=== PATIENT | male | born 1985 | race Two or more races ===

== ENCOUNTER → 2016-11-09 | Outpatient (CLI) | payer MEDICARE, MEDICAID ==
[~2016-11-09] MED LIST: NORPTMEDS CO; RIVA20TA PO
[2016-11-09 16:01] LABS: Basophils # (auto) 0 uL; Basophils % (auto) 0.3 % (0.0-2.0); Eosinophils # (auto) 0.4 uL; Eosinophils % (auto) 3.6 % (0.0-7.0); Hematocrit 46.6 % (41.0-53.0); Hemoglobin 15.4 g/dL (13.5-17.5); Lymphocytes # (auto) 2.4 uL; Lymphocytes % (auto) 23.4 % (10.0-50.0); Mean Corpuscular Volume 87.7 fL (80.0-100.0); Mean Platelet Volume 7.7 fL (7.4-10.4); Monocytes # (auto) 0.5 uL; Monocytes % (auto) 5.1 % (0.0-12.0); Neutrophils # (auto) 6.9 uL; Neutrophils % (auto) 67.6 % (37.0-80.0); Platelet Count (auto) 477 10^3/uL (140-450); Red Cell Distribution Width 14.4 % (11.6-16.0); White Blood Cell 10.3 10^3/uL (4.4-10.8)
[2016-11-09 17:00] LABS: Albumin 3.7 g/dL (3.4-5.0); BUN/Creatinine Ratio 18.3; Bilirubin, Total 0.4 mg/dL (0.2-1.0); Calcium 9.6 mg/dL (8.5-10.1); Potassium 4.2 mmol/L (3.5-5.1); Total Protein 8.9 g/dL (6.4-8.2)
== END | disposition home or self-care (01) ==
LOC: LAB 15:15
DX: M06.9 Rheumatoid arthritis, unspecified (principal); I10 Essential (primary) hypertension; M25.50 Pain in unspecified joint; D64.9 Anemia, unspecified
CPT/HCPCS: 36415; 80053; 85025; 85652; 86141

== ENCOUNTER 2017-01-23 05:45 | Emergency (ER) | payer MEDICARE, MEDICAID ==
[~2017-01-23] VITALS: Ht 193 cm; Wt 163.3 kg
[2017-01-23 07:46] LABS: Basophils # (auto) 0 uL; Basophils % (auto) 0.3 % (0.0-2.0); CONDITION Y; Eosinophils # (auto) 0.3 uL; Eosinophils % (auto) 2.8 % (0.0-7.0); Hematocrit 41.1 % (41.0-53.0); Hemoglobin 13.8 g/dL (13.5-17.5); Lymphocytes # (auto) 1.6 uL; Lymphocytes % (auto) 16.7 % (10.0-50.0); Mean Corpuscular Hemoglobin 29.3 pg (28.0-32.0); Mean Corpuscular Hgb Conc. 33.5 g/dL (32.0-36.0); Mean Corpuscular Volume 87.5 fL (80.0-100.0); Mean Platelet Volume 8.1 fL (7.4-10.4); Monocytes # (auto) 0.5 uL; Monocytes % (auto) 5.7 % (0.0-12.0); Neutrophils # (auto) 7.2 uL; Neutrophils % (auto) 74.5 % (37.0-80.0); Platelet Count (auto) 402 10^3/uL (140-450); Red Cell Distribution Width 14.9 % (11.6-16.0); White Blood Cell 9.6 10^3/uL (4.4-10.8)
[2017-01-23] MEDS ORDERED: FAMOTIDINE 20 MG TAB PO ONE (08:00)
[2017-01-23 08:06] LABS: Albumin 3.3 g/dL (3.4-5.0); Alkaline Phosphatase 94 U/L (45-117); Anion Gap 7 (5-15); Aspartate Aminotransferase 13 U/L (15-37); BUN/Creatinine Ratio 26.2; Bilirubin, Total 0.2 mg/dL (0.2-1.0); Blood Urea Nitrogen 22 mg/dL (7-18); Calcium 9.1 mg/dL (8.5-10.1); Carbon Dioxide 25 mmol/L (21-32); Chloride 106 mmol/L (98-107); GFR African American 139 mL/min; GFR Non-African American 115 mL/min; Glucose 107 mg/dL (74-106); Magnesium 2.2 mg/dL (1.6-2.6); Potassium 3.8 mmol/L (3.5-5.1); Sodium 138 mmol/L (136-145); Total Protein 7.9 g/dL (6.4-8.2)
[2017-01-23] MEDS ORDERED: IOHEXOL 350 MG/ML 100ML IJ ONE (10:15)
[2017-01-23 10:18] LABS: Urine Bilirubin Negative (Negative); Urine Blood Negative /uL (Negative); Urine Color Yellow (Yellow); Urine Glucose Normal (Normal); Urine Ketone Negative (Negative); Urine Mucus FEW (None Seen); Urine Nitrite Negative (Negative); Urine RBC 1 /hpf (0 - 3); Urine Urobilinogen Normal (Negative)
[2017-01-23 10:40] VITALS: BP 117/64
== END 2017-01-23 11:48 | disposition home or self-care (01) ==
LOC: ER 05:46
DX: R07.89 Other chest pain (principal); R79.1 Abnormal coagulation profile; R91.1 Solitary pulmonary nodule; M06.9 Rheumatoid arthritis, unspecified; E46 Unspecified protein-calorie malnutrition; I10 Essential (primary) hypertension; F12.10 Cannabis abuse, uncomplicated; M19.90 Unspecified osteoarthritis, unspecified site; Z88.8 Allergy status to other drugs, medicaments and biological substances; Z68.41 Body mass index [BMI] 40.0-44.9, adult
CPT/HCPCS: 36415; 71010; 71275; 80053; 80307; 81001; 83735; 84484; 85025; 85379; 93005; 99285; Q9967

== ENCOUNTER 2017-03-03 20:15 | Emergency (ER) | payer MEDICARE, MEDICAID ==
[~2017-03-03] VITALS: Ht 190.5 cm; Wt 176.0 kg
[2017-03-03 21:56] LABS: Basophils # (auto) 0 uL; Basophils % (auto) 0.3 % (0.0-2.0); CONDITION Y; Eosinophils # (auto) 0.6 uL; Eosinophils % (auto) 6.5 % (0.0-7.0); Hematocrit 44.8 % (41.0-53.0); Hemoglobin 14.7 g/dL (13.5-17.5); Lymphocytes % (auto) 20.9 % (10.0-50.0); Mean Corpuscular Hemoglobin 29.1 pg (28.0-32.0); Mean Corpuscular Hgb Conc. 32.7 g/dL (32.0-36.0); Mean Corpuscular Volume 89.1 fL (80.0-100.0); Mean Platelet Volume 8.1 fL (7.4-10.4); Monocytes # (auto) 0.6 uL; Monocytes % (auto) 5.8 % (0.0-12.0); Neutrophils # (auto) 6.4 uL; Neutrophils % (auto) 66.5 % (37.0-80.0); Platelet Count (auto) 400 10^3/uL (140-450); Red Cell Distribution Width 14.4 % (11.6-16.0); White Blood Cell 9.6 10^3/uL (4.4-10.8)
[2017-03-03 22:41] LABS: Chloride 105 mmol/L (98-107); Potassium 3.8 mmol/L (3.5-5.1); Sodium 136 mmol/L (136-145)
[2017-03-03 22:42] LABS: Alkaline Phosphatase 83 U/L (45-117); Anion Gap 7 (5-15); BUN/Creatinine Ratio 20.3; Blood Urea Nitrogen 13 mg/dL (7-18); Carbon Dioxide 24 mmol/L (21-32); GFR African American 189 mL/min; GFR Non-African American 156 mL/min; Glucose 106 mg/dL (74-106)
[2017-03-03 22:43] LABS: Albumin 3.5 g/dL (3.4-5.0); Aspartate Aminotransferase 18 U/L (15-37); Bilirubin, Total 0.4 mg/dL (0.2-1.0); Total Protein 8.2 g/dL (6.4-8.2)
[2017-03-04 00:46] VITALS: BP 147/103
== END 2017-03-04 01:52 | disposition left against medical advice (07) ==
LOC: EDBD 20:15 → ER 20:18
DX: F41.9 Anxiety disorder, unspecified (principal); Z53.21 Procedure and treatment not carried out due to patient leaving prior to being seen by health care provider
CPT/HCPCS: 36415; 80053; 84484; 85025; 93005

== ENCOUNTER 2017-07-23 01:56 | Emergency (ER) | payer MEDICARE, OTHER ==
[~2017-07-23] VITALS: Ht 190.5 cm; Wt 163.3 kg
[2017-07-23 05:13] LABS: Basophils # (auto) 0 uL; Basophils % (auto) 0.4 % (0.0-2.0); Eosinophils # (auto) 0.6 uL; Eosinophils % (auto) 6.4 % (0.0-7.0); Hematocrit 43.4 % (41.0-53.0); Hemoglobin 14.3 g/dL (13.5-17.5); Lymphocytes # (auto) 2.2 uL; Lymphocytes % (auto) 23.1 % (10.0-50.0); Mean Corpuscular Hemoglobin 28.9 pg (28.0-32.0); Mean Corpuscular Hgb Conc. 33.1 g/dL (32.0-36.0); Mean Corpuscular Volume 87.3 fL (80.0-100.0); Monocytes # (auto) 0.6 uL; Monocytes % (auto) 6.6 % (0.0-12.0); Neutrophils # (auto) 6.1 uL; Neutrophils % (auto) 63.5 % (37.0-80.0); Platelet Count (auto) 448 10^3/uL (140-450); Red Blood Cells 4.97 10^6/uL (4.5-5.90); Red Cell Distribution Width 13.8 % (11.8-14.3); White Blood Cell 9.6 10^3/uL (4.4-10.8)
[2017-07-23 05:20] LABS: INR 0.95 (0.9-1.15); Partial Thromboplastin Time 28.8 sec (22.64-33.71); Prothrombin Time 10.4 sec (9.37-12.3)
[2017-07-23 05:30] LABS: Albumin 3.5 g/dL (3.4-5.0); BUN/Creatinine Ratio 27.3; Calcium 9.9 mg/dL (8.5-10.1)
[2017-07-23 05:33] LABS: Bilirubin, Total 0.3 mg/dL (0.2-1.0); Total Protein 8.2 g/dL (6.4-8.2)
[2017-07-23 07:25] VITALS: BP 123/61
[2017-07-23] MEDS ORDERED: IOHEXOL 350 MG/ML 100ML IJ ONE (08:18)
== END 2017-07-23 09:38 | disposition home or self-care (01) ==
LOC: ER 01:56
DX: S83.92XA Sprain of unspecified site of left knee, initial encounter (principal); R79.1 Abnormal coagulation profile; M19.90 Unspecified osteoarthritis, unspecified site; E66.9 Obesity, unspecified; Z86.718 Personal history of other venous thrombosis and embolism; X58.XXXA Exposure to other specified factors, initial encounter; Y93.89 Activity, other specified; Y92.89 Other specified places as the place of occurrence of the external cause; Y99.8 Other external cause status
CPT/HCPCS: 36415; 71045; 71275; 73562; 80053; 85025; 85379; 85610; 85730; 93971; 99285; Q9967

== ENCOUNTER → 2017-11-23 | Outpatient (CLI) | payer MEDICARE, OTHER, MEDICAID ==
[2017-11-23 13:14] LABS: Basophils # (auto) 0 uL; Basophils % (auto) 0.4 % (0.0-2.0); Eosinophils # (auto) 0.6 uL; Eosinophils % (auto) 6.1 % (0.0-7.0); Hematocrit 46.5 % (41.0-53.0); Hemoglobin 15.4 g/dL (13.5-17.5); Lymphocytes # (auto) 2.7 uL; Lymphocytes % (auto) 26.1 % (10.0-50.0); Mean Corpuscular Hgb Conc. 33.1 g/dL (32.0-36.0); Mean Corpuscular Volume 87.6 fL (80.0-100.0); Monocytes # (auto) 0.6 uL; Monocytes % (auto) 5.8 % (0.0-12.0); Neutrophils # (auto) 6.3 uL; Neutrophils % (auto) 61.6 % (37.0-80.0); Platelet Count (auto) 460 10^3/uL (140-450); Red Cell Distribution Width 13.8 % (11.8-14.3); White Blood Cell 10.3 10^3/uL (4.4-10.8)
[2017-11-23 13:58] LABS: Albumin 3.7 g/dL (3.4-5.0); BUN/Creatinine Ratio 20.5; Bilirubin, Total 0.3 mg/dL (0.2-1.0); Potassium 3.8 mmol/L (3.5-5.1); Total Protein 8.6 g/dL (6.4-8.2)
== END | disposition home or self-care (01) ==
LOC: LAB 12:13
PROVIDERS: ATTEND Physician Assistant
DX: I10 Essential (primary) hypertension (principal); M05.9 Rheumatoid arthritis with rheumatoid factor, unspecified; R91.1 Solitary pulmonary nodule
CPT/HCPCS: 36415; 80053; 80061; 85025

== ENCOUNTER 2018-09-23 00:42 | Inpatient (IN) | payer MEDICARE, OTHER ==
[~2018-09-23] VITALS: Ht 190.5 cm; Wt 208.1 kg
[2018-09-23] MEDS ORDERED: SODIUM CHLORIDE 0.9% 1,000 ML IV ONE ×2 (05:38)
[2018-09-23] MEDS ORDERED: PROMETHAZINE HCL 25 MG/ML 1ML IV ONE (06:00)
[2018-09-23] MEDS ORDERED: SUMAtriptan SUCCINATE 6 MG/0.5 ML VL SC ONE (06:00)
[2018-09-23 06:28] LABS: Basophils # (auto) 0 uL; Basophils % (auto) 0.2 % (0.0-2.0); Eosinophils # (auto) 0.1 uL; Eosinophils % (auto) 0.4 % (0.0-7.0); Hematocrit 47.7 % (41.0-53.0); Hemoglobin 15.5 g/dL (13.5-17.5); Lymphocytes # (auto) 1.9 uL; Lymphocytes % (auto) 9.6 % (10.0-50.0); Mean Corpuscular Hemoglobin 28.5 pg (28.0-32.0); Mean Corpuscular Hgb Conc. 32.6 g/dL (32.0-36.0); Mean Corpuscular Volume 87.6 fL (80.0-100.0); Monocytes # (auto) 1.4 uL; Monocytes % (auto) 6.9 % (0.0-12.0); Neutrophils # (auto) 16.4 uL; Neutrophils % (auto) 82.9 % (37.0-80.0); Platelet Count (auto) 436 10^3/uL (140-450); Red Blood Cells 5.45 10^6/uL (4.5-5.90); White Blood Cell 19.8 10^3/uL (4.4-10.8)
[2018-09-23 06:50] LABS: Alanine Aminotransferase 33 U/L (16-61); Albumin 3.6 g/dL (3.4-5.0); Anion Gap 9 (5-15); Aspartate Aminotransferase 16 U/L (15-37); BUN/Creatinine Ratio 11.9; Blood Urea Nitrogen 10 mg/dL (7-18); Calcium 9.3 mg/dL (8.5-10.1); Carbon Dioxide 23 mmol/L (21-32); Chloride 102 mmol/L (98-107); GFR African American 137 mL/min; GFR Non-African American 113 mL/min; Glucose 101 mg/dL (74-106); Potassium 3.9 mmol/L (3.5-5.1); Sodium 134 mmol/L (136-145)
[2018-09-23 06:55] LABS: Alkaline Phosphatase 113 U/L (45-117); Bilirubin, Total 0.8 mg/dL (0.2-1.0); Total Protein 8.9 g/dL (6.4-8.2)
[2018-09-23 07:02] LABS: Partial Thromboplastin Time 33.1 sec (23.78-33.04); Prothrombin Time 10.7 sec (9.27-12.13)
[2018-09-23] MEDS ORDERED: NITROGLYCERIN 0.4 MG SL TAB SL PRN (09:15)
[2018-09-23] MEDS ORDERED: MORPHINE SULF INJ 2 MG/ML SYRINGE 1ML IV PRN ×2 (09:15)
[2018-09-23] MEDS ORDERED: ONDANSETRON HCL 4 MG/2 ML VIAL IV PRN (09:15)
[2018-09-23 09:27] LABS: Urine Bacteria NONE SEEN /hpf (None Seen); Urine Blood Negative /uL (Negative); Urine Mucus FEW (None Seen); Urine Specific Gravity 1.014 (1.001-1.035); Urine WBC 1 /hpf (0 - 3)
[2018-09-23] MEDS: SODIUM CHLORIDE 0.9% 1,000 ML IV SCH ×2 (09:49→15:21)
[2018-09-23] MEDS: PANTOPRAZOLE 40 MG TAB PO SCH (09:54)
[2018-09-23] MEDS: DOCUSATE SOD 100 MG CAP PO SCH ×2 (09:54→21:28)
[2018-09-23] MEDS: LEVOFLOXACIN 750MG 150 ML IV SCH (09:54)
[2018-09-23] MEDS: ENOXAPARIN SOD 40 MG/0.4 ML SYRINGE SC SCH (10:12)
[2018-09-23] MEDS ORDERED: VANCOMYCIN PER PHARMACY 0 MG IV SCH (11:45)
[2018-09-23] MEDS ORDERED: CLINDAMYCIN 300MG IV 50 ML IV SCH (14:00)
[2018-09-23 15:00] VITALS: BP 127/69
--- NOTE | 2018-09-23 15:00 | NUR ---
Telemetry admit from ER JESSE MOMIN admitted to Telemetry unit after SBAR received. Patient oriented to Eda Mckenna, primary RN, [place] room 246B and unit policies regarding patient care and visiting hours. Patient now on continuous telemetry monitoring, tele box #[id number] and telemetry reading on arrival to unit is [facility]. Patient and encouraged to call if they need something. All questions and concerns addressed, patient verbalized understanding.
[2018-09-23] MEDS: VANCOMYCIN 1,500 MG in D5W 5% 250 ML IV SCH ×2 (15:21→21:27)
[2018-09-23 16:30] VITALS: BP 127/69
--- NOTE | 2018-09-23 17:00 | NUR ---
Oral Temperature 99.1 Provided ice water and instructed patient to drink in attempt to cool down. Will reassess in one hour.
[2018-09-23 22:00] VITALS: BP 114/64
[2018-09-23] MEDS: HYDROcodone-ACET 5/325MG TAB PO PRN (22:12)
--- NOTE | 2018-09-24 00:53 | NUR ---
Pt c/o pain and swelling at IV site. IV dc'd with cath tip intact. New IV started in right hand with 20g IV on first attempt and pt lisbeth well.
[2018-09-24 05:00] VITALS: BP 129/70
[2018-09-24] MEDS: VANCOMYCIN 1,500 MG in D5W 5% 250 ML IV SCH ×2 (06:30→16:29)
--- NOTE | 2018-09-24 06:44 | NUR ---
HR increased to 120 and pt is up in the BR states he is having a BM now.
[2018-09-24 06:58] LABS: Basophils # (auto) 0 uL; Basophils % (auto) 0.3 % (0.0-2.0); Eosinophils # (auto) 0.2 uL; Eosinophils % (auto) 1.3 % (0.0-7.0); Hematocrit 43.7 % (41.0-53.0); Hemoglobin 14.1 g/dL (13.5-17.5); Lymphocytes # (auto) 2.1 uL; Lymphocytes % (auto) 15.5 % (10.0-50.0); Mean Corpuscular Hemoglobin 28.4 pg (28.0-32.0); Mean Corpuscular Hgb Conc. 32.4 g/dL (32.0-36.0); Mean Corpuscular Volume 87.6 fL (80.0-100.0); Monocytes # (auto) 1.2 uL; Neutrophils # (auto) 10.1 uL; Neutrophils % (auto) 73.9 % (37.0-80.0); Platelet Count (auto) 364 10^3/uL (140-450); Red Blood Cells 4.98 10^6/uL (4.5-5.90); Red Cell Distribution Width 13.9 % (11.8-14.3); White Blood Cell 13.6 10^3/uL (4.4-10.8)
[2018-09-24] MEDS: SODIUM CHLORIDE 0.9% 1,000 ML IV SCH ×3 (07:18→18:09)
--- NOTE | 2018-09-24 07:20 | NUR ---
Opening Shift Note Assumed care of patient, awake and alert, currently watching television w/ HOB 30degrees. No S/S of distress/SOB or pain. Bed at lowest setting with side-rails up x2 for safety and call light on hand. Instructed on POC and to call for assist PRN, will continue to monitor for changes Q1hr and PRN.
[2018-09-24 07:29] LABS: Calcium 9.4 mg/dL (8.5-10.1)
[2018-09-24 07:34] LABS: BUN/Creatinine Ratio 15.6; Bilirubin, Total 0.7 mg/dL (0.2-1.0); Total Protein 7.6 g/dL (6.4-8.2)
[2018-09-24 09:00] VITALS: BP 129/83
[2018-09-24] MEDS: ENOXAPARIN SOD 40 MG/0.4 ML SYRINGE SC SCH (11:18)
[2018-09-24] MEDS: DOCUSATE SOD 100 MG CAP PO SCH ×2 (11:18→22:00)
[2018-09-24] MEDS: LEVOFLOXACIN 750MG 150 ML IV SCH (11:18)
[2018-09-24] MEDS: PANTOPRAZOLE 40 MG TAB PO SCH (11:18)
[2018-09-24] MEDS: ACETAMINOPHEN 500 MG TAB PO PRN (12:41)
[2018-09-24 13:00] VITALS: BP 143/97
--- NOTE | 2018-09-24 13:15 | NUR ---
Dr. Thompson called, verbalized he will consult patient on Wednesday for his abscess.
--- NOTE | 2018-09-24 16:25 | NUR ---
WOUND CARE NOTE: Wound care in to see patient per wound care request regarding "weeping abscess to Rt inferior gluteal" that are present on admission. Patient is 33 years old male with admitting diagnosis of Sepsis. Patient is resting in bed in Rm. 246B. He's awake, alert and oriented. He's self turn and reposition. His current Jose score is 18. Patient is in no stated pain at this time. Noted patient's distal R gluteal is dark red and indurated and pores weeping serous drainage, no odor noted. Photograph of patient's R gluteal are taken for reference. Patient reported that he just noted site painful, red and indurated about four days ago, he denies trauma, insect bites and Diabetes. Advised bedside nurse to cleansed site with mild soap and water and cover site with absorbent pad per MD order. Patient tolerated well. Patient has an active surgical consult and per notes, Dr Thompson is aware and will see patient. RECOMMENDATION: Daily/PRN dressing change to R gluteal per MD order, surgical consult , warm compress, redistribute pressure points with pillows, bariatric bed (ordered, awaiting delivery con# [id number], call [facility] at [phone] if need to follow up). Addendum: 09/24/18 at 1709 by Arpita Romero RN Amended: Links added.
[2018-09-24 17:00] VITALS: BP 143/70
[2018-09-24 22:00] VITALS: BP 145/79
[2018-09-25] MEDS: SODIUM CHLORIDE 0.9% 1,000 ML IV SCH ×3 (01:30→17:46)
[2018-09-25] MEDS: VANCOMYCIN 1,500 MG in D5W 5% 250 ML IV SCH ×2 (03:09→14:37)
[2018-09-25 05:00] VITALS: BP 124/60
[2018-09-25] MEDS: HYDROcodone-ACET 5/325MG TAB PO PRN (05:52)
[2018-09-25 06:47] LABS: Basophils # (auto) 0 uL; Basophils % (auto) 0.1 % (0.0-2.0); Eosinophils # (auto) 0 uL; Eosinophils % (auto) 0.2 % (0.0-7.0); Hematocrit 40.6 % (41.0-53.0); Hemoglobin 13.4 g/dL (13.5-17.5); Lymphocytes # (auto) 1.9 uL; Lymphocytes % (auto) 11.2 % (10.0-50.0); Mean Corpuscular Hemoglobin 28.7 pg (28.0-32.0); Mean Corpuscular Hgb Conc. 32.9 g/dL (32.0-36.0); Mean Corpuscular Volume 87.2 fL (80.0-100.0); Monocytes # (auto) 1.3 uL; Monocytes % (auto) 7.6 % (0.0-12.0); Neutrophils # (auto) 13.4 uL; Neutrophils % (auto) 80.9 % (37.0-80.0); Platelet Count (auto) 344 10^3/uL (140-450); Red Blood Cells 4.66 10^6/uL (4.5-5.90); Red Cell Distribution Width 13.9 % (11.8-14.3); White Blood Cell 16.6 10^3/uL (4.4-10.8)
[2018-09-25 07:11] LABS: BUN/Creatinine Ratio 9.2; Calcium 9.1 mg/dL (8.5-10.1); Potassium 3.6 mmol/L (3.5-5.1)
--- NOTE | 2018-09-25 07:20 | NUR ---
Opening Shift Note Assumed care of patient, awake and alert. No S/S of distress/SOB or pain. Instructed on POC and to call for assist PRN, will continue to monitor for changes Q1hr and PRN.
[2018-09-25 08:00] VITALS: BP 119/68
[2018-09-25 08:30] VITALS: BP 119/68
[2018-09-25] MEDS ORDERED: POLYETHYLENE GLYCOL 17 GM PWDR PO PRN (08:45)
[2018-09-25] MEDS ORDERED: POLYETHYLENE GLYCOL 17 GM PWDR PO ONE (08:45)
[2018-09-25] MEDS: PANTOPRAZOLE 40 MG TAB PO SCH (09:26)
[2018-09-25] MEDS: DOCUSATE SOD 100 MG CAP PO SCH ×2 (09:26→22:09)
[2018-09-25] MEDS: ENOXAPARIN SOD 40 MG/0.4 ML SYRINGE SC SCH (09:27)
--- NOTE | 2018-09-25 10:00 | NUR ---
IV removal Right hand IV leaking. IV DC'd with clean sterile technique, catheter fully intact. Pressure dressing applied to site. Patient tolerated well. NOTE: []
--- NOTE | 2018-09-25 11:00 | NUR ---
IV insertion IV access obtained, via clean sterile technique by inserting 20 gauge catheter at left hand after 1 attempt. IV secured properly. No trauma to site. Patient tolerated well. NOTE: []
[2018-09-25] MEDS: PIPERACILLIN-TAZOB 3.375GM 100 ML IV SCH ×3 (12:29→23:51)
[2018-09-25 12:30] VITALS: BP 123/65
--- NOTE | 2018-09-25 16:00 | NUR ---
TEMP 100.9 Patient given Tylenol and Ice packs.
[2018-09-25] MEDS: ACETAMINOPHEN 500 MG TAB PO PRN (16:03)
--- NOTE | 2018-09-25 18:03 | NUR ---
Temp Recheck Temperature 99.6 on recheck
--- NOTE | 2018-09-25 19:30 | NUR ---
OPENING NOTE REPORT RECEIVED FROM DAY SHIFT RN PATIENT IS A/OX4 RESTING IN BED, NO S/S OF DISTRESS. FULL PHYSICAL ASSESSMENT DONE-SEE INTERVENTIONS. POC FOR TONIGHT DISCUSSED, ALL QUESTIONS ANSWERED. WILL MONITOR Q1H PRN THROUGHOUT SHIFT, CALL LIGHT WITHIN REACH.
[2018-09-25 22:00] VITALS: BP 121/61
[2018-09-26] MEDS: SODIUM CHLORIDE 0.9% 1,000 ML IV SCH ×3 (01:11→18:16)
[2018-09-26] MEDS: HYDROcodone-ACET 5/325MG TAB PO PRN (01:15)
[2018-09-26] MEDS: VANCOMYCIN 1,500 MG in D5W 5% 250 ML IV SCH ×3 (03:08→18:16)
[2018-09-26 05:00] VITALS: BP 109/52
--- NOTE | 2018-09-26 05:30 | NUR ---
LOW GRADE TEMP OF 99.9F INITIATED COOLING MEASURES: ICE PACK PROVIDED, LIGHT WEIGHT SHEET ON PATIENT, BLANKET REMOVED, ICE COLD WATER PROVIDED WILL CONTINUE TO MONITOR
[2018-09-26] MEDS: PIPERACILLIN-TAZOB 3.375GM 100 ML IV SCH ×2 (05:53→15:32)
--- NOTE | 2018-09-26 07:11 | NUR ---
CLOSING NOTE REPORT ENDORSED TO DAY SHIFT RN PATIENT IS RESTING IN BED, SLEEPING, VISIBLE RISE AND FALL OF CHEST NOTED. NO S/S OF DISTRESS, CALL LIGHT WITHIN REACH
[2018-09-26 07:16] LABS: BUN/Creatinine Ratio 9.5; Calcium 8.9 mg/dL (8.5-10.1); Potassium 3.6 mmol/L (3.5-5.1)
[2018-09-26 07:22] LABS: Basophils # (auto) 0 uL; Basophils % (auto) 0.2 % (0.0-2.0); Eosinophils # (auto) 0.5 uL; Eosinophils % (auto) 2.6 % (0.0-7.0); Hemoglobin 12.5 g/dL (13.5-17.5); Lymphocytes # (auto) 1.5 uL; Lymphocytes % (auto) 8.8 % (10.0-50.0); Mean Corpuscular Hemoglobin 28.5 pg (28.0-32.0); Mean Corpuscular Hgb Conc. 32.9 g/dL (32.0-36.0); Mean Corpuscular Volume 86.5 fL (80.0-100.0); Monocytes # (auto) 1.2 uL; Monocytes % (auto) 6.8 % (0.0-12.0); Neutrophils # (auto) 14.2 uL; Neutrophils % (auto) 81.6 % (37.0-80.0); Platelet Count (auto) 345 10^3/uL (140-450); Red Cell Distribution Width 13.7 % (11.8-14.3); White Blood Cell 17.4 10^3/uL (4.4-10.8)
--- NOTE | 2018-09-26 08:58 | NUR ---
TEMP Patient has temp 101.6. Cooling measures provided, including ice packs. Patient refuses Tylenol at this time. Patient states he drank coffee. Education provided. Will reassess temp.
[2018-09-26 09:00] VITALS: BP 102/57
--- NOTE | 2018-09-26 11:02 | NUR ---
HYGIENE Full linen change provided. Patient showered with assitance for girlfriend, wounds cleaned. Patient tolerated well.
[2018-09-26] MEDS: PANTOPRAZOLE 40 MG TAB PO SCH (11:42)
[2018-09-26] MEDS: ENOXAPARIN SOD 40 MG/0.4 ML SYRINGE SC SCH (11:42)
[2018-09-26] MEDS: DOCUSATE SOD 100 MG CAP PO SCH ×2 (11:42→22:16)
[2018-09-26 13:00] VITALS: BP 118/62
--- NOTE | 2018-09-26 14:32 | NUR ---
NUTRITION ASSESSMENT NOTES Please refer to link notes of nutrition screen form filed under the intervention section of the plan of care for further details. Est. Needs based on AdBw (118 kg): 2350 kcal to 2950 kcal (20-25 kcal/kgAdBW), 118 gms to 142 gms pro (1.0-1.2 gms/kgBW). Will continue to monitor pertinent labs and reassess nutrient need prn Thank you. Addendum: 09/26/18 at [address] Amended: Links added.
[2018-09-26] MEDS: ACETAMINOPHEN 500 MG TAB PO PRN (16:04)
[2018-09-26 17:00] VITALS: BP 118/53
--- NOTE | 2018-09-26 19:45 | NUR ---
Opening shift note: Assumed care for patient from day nurse. Patient is alert and orient x 4. Family is bedside. No s/s of distress or sob. Instructed on poc and to call as need. Patient is in a specialty bed. Bed in lowest position and call light is within reach.
[2018-09-26] MEDS ORDERED: PIPERACILLIN-TAZOB 3.375GM 100 ML IV SCH (21:00)
--- NOTE | 2018-09-26 21:50 | NUR ---
Hospitalist Paged. Patient has rash on back and is complain of itchiness. MD and nurse from morning aware and said to put lotion on it. Lotion is not helping. Will take picture for wound consult. Will await call back from hospitalist for Benadryl order.
--- NOTE | 2018-09-26 21:59 | NUR ---
Hospitalist called back Hospitalist Ayesha Beth called back and ordered Bendryl. See Emar for further details.
[2018-09-26 22:00] VITALS: BP 106/59
--- NOTE | 2018-09-26 22:05 | NUR ---
Hospitalist paged Hospitalist paged to clarify order. will await call.
--- NOTE | 2018-09-26 22:45 | NUR ---
Allergic reaction Paged Hospitalist: Patient was complaining of itching and rash on back. Patient stated, "When Md was bedside him and the morning nurse was made aware and putting lotion on it". After administering majority of Zosyn per order patient rash has now become generalized. Patient has no s/s of distress or sob. Lungs are clear with even and unlabored breathing. Vitals are Temperature: 98.2, O2 95%, Pulse 83, BP 109/61, respiration 20. Paged hospitalist awaiting call back.
--- NOTE | 2018-09-26 23:10 | NUR ---
Hospitalist Paged Hospitalist paged again. awaiting call back.
--- NOTE | 2018-09-26 23:19 | NUR ---
Patient rounded On: Patient has no s/s of distress or sob. Lungs are clear and breathing is even and unlabored. Patient was educated to call the nurse if rash continues to spread or symptoms worsen. Patient verbalizes understanding.
[2018-09-27] MEDS ORDERED: diphenhdrAMINE HCL 50 MG/1 ML VL IM ONE
[2018-09-27] MEDS: SODIUM CHLORIDE 0.9% 1,000 ML IV SCH ×3 (00:02→17:30)
--- NOTE | 2018-09-27 00:40 | NUR ---
BENADRYL REASSESSMENT: REDNESS ALL OVER BACK AND ARMS AND NECK. PATIENT IS NO LONGER ITCHING. LUNGS ARE CLEAR. NO S/S OF DISTRESS OR SOB. RESPIRATION ARE EVEN AND UNLABORED. WILL CONTINUE TO MONITOR SKIN APPEARS AND BREATHING.
[2018-09-27] MEDS: VANCOMYCIN 1,500 MG in D5W 5% 250 ML IV SCH ×2 (02:59→11:58)
--- NOTE | 2018-09-27 03:15 | NUR ---
IV removal IV DC'd Left hand 20 g with clean sterile technique, catheter fully intact. Pressure dressing applied to site. Patient tolerated well. IV insertion IV access obtained, via clean sterile technique by inserting 20 gauge catheter on right wrist after one attempt. IV secured properly. No trauma to site. Patient tolerated well.
[2018-09-27] MEDS: diphenhdrAMINE HCL 25 MG CAP PO PRN ×4 (04:01→20:24)
[2018-09-27 04:56] VITALS: BP 101/60
--- NOTE | 2018-09-27 05:17 | NUR ---
SLOWED VANCO SLOWED DOWN VANCO PATIENT STARTED ITCHING TO 100ML/HR. INSTRUCTED PATIENT TO CALL IF IT CONTINUES. NO S/S OF DISTRESS. LUNGS WERE AUSCULTATED AND THEY ARE CLEAR AT THIS TIME
[2018-09-27] MEDS: CLINDAMYCIN 600MG IV 50 ML IV SCH ×3 (06:12→22:22)
[2018-09-27 06:54] LABS: Basophils # (auto) 0 uL; Basophils % (auto) 0.3 % (0.0-2.0); Eosinophils # (auto) 0.7 uL; Eosinophils % (auto) 5.7 % (0.0-7.0); Hematocrit 40.2 % (41.0-53.0); Hemoglobin 12.8 g/dL (13.5-17.5); Lymphocytes # (auto) 1.4 uL; Lymphocytes % (auto) 11.8 % (10.0-50.0); Mean Corpuscular Volume 87.4 fL (80.0-100.0); Monocytes # (auto) 0.9 uL; Monocytes % (auto) 7.8 % (0.0-12.0); Neutrophils % (auto) 74.4 % (37.0-80.0); Platelet Count (auto) 357 10^3/uL (140-450); Red Blood Cells 4.59 10^6/uL (4.5-5.90); Red Cell Distribution Width 13.8 % (11.8-14.3); White Blood Cell 12.1 10^3/uL (4.4-10.8)
[2018-09-27 07:12] LABS: Albumin 2.5 g/dL (3.4-5.0); Calcium 9.3 mg/dL (8.5-10.1); Potassium 3.2 mmol/L (3.5-5.1)
[2018-09-27 07:16] LABS: BUN/Creatinine Ratio 8.8; Bilirubin, Total 0.7 mg/dL (0.2-1.0); Total Protein 7.3 g/dL (6.4-8.2)
--- NOTE | 2018-09-27 07:25 | NUR ---
Closing shift note Care endorsed to day shift, patient is stable at this time
[2018-09-27 09:00] VITALS: BP 113/70
[2018-09-27] MEDS: ENOXAPARIN SOD 40 MG/0.4 ML SYRINGE SC SCH (10:00)
[2018-09-27] MEDS: PANTOPRAZOLE 40 MG TAB PO SCH (10:37)
[2018-09-27] MEDS: DOCUSATE SOD 100 MG CAP PO SCH ×2 (10:37→22:22)
--- NOTE | 2018-09-27 11:00 | NUR ---
AMBULATION Patient ambulating hallway with daughter standby. Patient tolerating well. Addendum: 09/27/18 at 1113 by Sena Richards RN RN WRONG PATIENT
[2018-09-27] MEDS ORDERED: POTASSIUM CHL 10 Meq TABLET PO ONE (11:45)
[2018-09-27] MEDS: Ensure Enlive Strawberry 8oz Bottle PO SCH ×2 (12:00→18:21)
[2018-09-27 13:00] VITALS: BP 126/76
[2018-09-27 16:57] VITALS: BP 109/58
[2018-09-27 21:56] VITALS: BP 130/79
[2018-09-28 05:24] VITALS: BP 102/67
[2018-09-28] MEDS: CLINDAMYCIN 600MG IV 50 ML IV SCH ×2 (06:12→14:00)
[2018-09-28 06:26] LABS: Basophils # (auto) 0 uL; Basophils % (auto) 0.4 % (0.0-2.0); Eosinophils # (auto) 0.9 uL; Eosinophils % (auto) 8.9 % (0.0-7.0); Hematocrit 38.2 % (41.0-53.0); Hemoglobin 12.8 g/dL (13.5-17.5); Lymphocytes # (auto) 1.5 uL; Lymphocytes % (auto) 14.7 % (10.0-50.0); Mean Corpuscular Hemoglobin 29.1 pg (28.0-32.0); Mean Corpuscular Hgb Conc. 33.5 g/dL (32.0-36.0); Mean Corpuscular Volume 86.8 fL (80.0-100.0); Monocytes # (auto) 0.9 uL; Monocytes % (auto) 8.6 % (0.0-12.0); Neutrophils # (auto) 6.7 uL; Neutrophils % (auto) 67.4 % (37.0-80.0); Nucleated Red Blood Cells % 0.1 %; Platelet Count (auto) 434 10^3/uL (140-450); Red Cell Distribution Width 13.7 % (11.8-14.3)
[2018-09-28 06:37] LABS: BUN/Creatinine Ratio 11.4; Potassium 3.7 mmol/L (3.5-5.1)
[2018-09-28 09:07] VITALS: BP 115/64
[2018-09-28] MEDS: SODIUM CHLORIDE 0.9% 1,000 ML IV SCH ×2 (09:59→10:54)
[2018-09-28] MEDS: DOCUSATE SOD 100 MG CAP PO SCH (10:00)
[2018-09-28] MEDS: ENOXAPARIN SOD 40 MG/0.4 ML SYRINGE SC SCH (10:00)
[2018-09-28] MEDS: PANTOPRAZOLE 40 MG TAB PO SCH (10:53)
[2018-09-28] MEDS: Ensure Enlive Strawberry 8oz Bottle PO SCH ×2 (10:54→12:27)
--- NOTE | 2018-09-28 13:01 | NUR ---
ROUNDING Dr Sapp rounding. Patient cleared for discharge.
[2018-09-28 13:41] VITALS: BP 114/64
--- NOTE | 2018-09-28 15:49 | NUR ---
WOUND PHOTOS Wound photos taken per policy.
--- NOTE | 2018-09-28 16:30 | NUR ---
at bedside. Discharge instructions given as ordered. Encourage to follow up with PMD as instructed. All questions and concerns addressed. Patient verbalized understanding. Medication reconciliation form completed and copy given to patient. IV removed with catheter intact, pressure dressing applied. Telemetry unit returned to ICU. Patient taken to vehicle via wheelchair with all personal belongings, accompanied by staff and family member. No distress noted at time of departure.
== END 2018-09-28 16:30 | disposition home or self-care (01) | DRG 872 ==
LOC: ER 00:48 → TELE 09:09 → TELE-EAST 14:57
PROVIDERS: ADMIT Nurse Practitioner Acute Care; ATTEND Internal Medicine
DX: A41.9 Sepsis, unspecified organism (principal); E87.1 Hypo-osmolality and hyponatremia; N39.0 Urinary tract infection, site not specified; E44.0 Moderate protein-calorie malnutrition; Z68.43 Body mass index [BMI] 50.0-59.9, adult; L02.31 Cutaneous abscess of buttock; L03.317 Cellulitis of buttock; E87.6 Hypokalemia; R65.20 Severe sepsis without septic shock; E66.01 Morbid (severe) obesity due to excess calories; K59.00 Constipation, unspecified; M06.9 Rheumatoid arthritis, unspecified; Z79.01 Long term (current) use of anticoagulants; Z86.718 Personal history of other venous thrombosis and embolism; Z82.49 Family history of ischemic heart disease and other diseases of the circulatory system
CPT/HCPCS: 36415; 71045; 76881; 80048; 80053; 80061; 80202; 81001; 82962; 83036; 83605; 83880; 84443; 84484; 85025; 85379; 85610; 85652; 85730; 86141; 87040; 87086; 93970; 96361; 96365; 96372; 96375; A6257; G0378; J1956; J2405; J2543; J3490; J7060

== ENCOUNTER → 2018-10-11 | Outpatient (CLI) | payer MEDICARE, OTHER ==
[~2018-10-11] MED LIST changes: -RIVA20TA PO
[2018-10-11 11:44] LABS: Basophils # (auto) 0.1 uL; Basophils % (auto) 0.6 % (0.0-2.0); Eosinophils # (auto) 0.3 uL; Eosinophils % (auto) 3.6 % (0.0-7.0); Hematocrit 45.4 % (41.0-53.0); Hemoglobin 14.7 g/dL (13.5-17.5); Mean Corpuscular Hemoglobin 28.5 pg (28.0-32.0); Mean Corpuscular Hgb Conc. 32.3 g/dL (32.0-36.0); Mean Corpuscular Volume 88.3 fL (80.0-100.0); Monocytes # (auto) 0.6 uL; Neutrophils # (auto) 6.7 uL; Neutrophils % (auto) 68.8 % (37.0-80.0); Nucleated Red Blood Cells % 0.1 %; Platelet Count (auto) 310 10^3/uL (140-450); Red Blood Cells 5.14 10^6/uL (4.5-5.90); Red Cell Distribution Width 15.1 % (11.8-14.3); White Blood Cell 9.7 10^3/uL (4.4-10.8)
[2018-10-11 12:58] LABS: Potassium 4.2 mmol/L (3.5-5.1)
[2018-10-11 13:12] LABS: Albumin 3.6 g/dL (3.4-5.0); BUN/Creatinine Ratio 15.4; Bilirubin, Total 0.4 mg/dL (0.2-1.0); Calcium 9.5 mg/dL (8.5-10.1); Total Protein 8.2 g/dL (6.4-8.2)
== END | disposition home or self-care (01) ==
LOC: LAB 11:08
PROVIDERS: ATTEND Physician Assistant
DX: M05.9 Rheumatoid arthritis with rheumatoid factor, unspecified (principal); N03.0 Chronic nephritic syndrome with minor glomerular abnormality; E55.9 Vitamin D deficiency, unspecified; R79.82 Elevated C-reactive protein (CRP); E66.9 Obesity, unspecified; D50.0 Iron deficiency anemia secondary to blood loss (chronic); I10 Essential (primary) hypertension
CPT/HCPCS: 36415; 80053; 80061; 82306; 85025

== ENCOUNTER 2018-11-05 15:09 | Emergency (ER) | payer MEDICARE, OTHER ==
[~2018-11-05] VITALS: Ht 190.5 cm; Wt 199.6 kg
[2018-11-05] MEDS ORDERED: ASPirin 81 mg TAB PO ONE (16:00)
[2018-11-05 17:09] LABS: Basophils # (auto) 0.1 uL; Basophils % (auto) 0.6 % (0.0-2.0); Eosinophils # (auto) 0.3 uL; Eosinophils % (auto) 2.2 % (0.0-7.0); Lymphocytes % (auto) 14.8 % (10.0-50.0); Monocytes # (auto) 0.9 uL; Monocytes % (auto) 6.5 % (0.0-12.0); Neutrophils # (auto) 10.1 uL; Neutrophils % (auto) 75.9 % (37.0-80.0); White Blood Cell 13.3 10^3/uL (4.4-10.8)
[2018-11-05 17:11] LABS: Red Blood Cells 5.38 10^6/uL (4.5-5.90)
[2018-11-05 17:12] LABS: Hematocrit 46.8 % (41.0-53.0); Hemoglobin 15.2 g/dL (13.5-17.5); Mean Corpuscular Hemoglobin 28.2 pg (28.0-32.0); Mean Corpuscular Hgb Conc. 32.5 g/dL (32.0-36.0); Platelet Count (auto) 309 10^3/uL (140-450); Red Cell Distribution Width 14.3 % (11.8-14.3)
[2018-11-05 18:02] LABS: Alanine Aminotransferase 36 U/L (16-61); Albumin 3.7 g/dL (3.4-5.0); Alkaline Phosphatase 106 U/L (45-117); Anion Gap 10 (5-15); Aspartate Aminotransferase 20 U/L (15-37); BUN/Creatinine Ratio 20.3; Bilirubin, Total 0.4 mg/dL (0.2-1.0); Blood Urea Nitrogen 16 mg/dL (7-18); Calcium 9.4 mg/dL (8.5-10.1); Carbon Dioxide 21 mmol/L (21-32); Chloride 109 mmol/L (98-107); GFR African American 147 mL/min; GFR Non-African American 122 mL/min; Glucose 103 mg/dL (74-106); Magnesium 2.5 mg/dL (1.6-2.6); Potassium 4.1 mmol/L (3.5-5.1); Sodium 140 mmol/L (136-145); Total Protein 8.5 g/dL (6.4-8.2)
[2018-11-05 18:57] VITALS: BP 149/91
== END 2018-11-05 19:04 | disposition home or self-care (01) ==
LOC: ER 15:12
DX: R07.89 Other chest pain (principal); F41.9 Anxiety disorder, unspecified
CPT/HCPCS: 36415; 80053; 83735; 83880; 84484; 85025; 93005

== ENCOUNTER 2019-03-10 01:47 | Inpatient (IN) | payer MEDICARE, OTHER | END 2019-03-11 14:39 | disposition home or self-care (01) | LOC: ER 01:47 → OVERFLOW 01:48 → EAST 08:51 | DX: J18.1 Lobar pneumonia, unspecified organism (principal); L02.31 Cutaneous abscess of buttock; E66.01 Morbid (severe) obesity due to excess calories; M06.9 Rheumatoid arthritis, unspecified; D72.829 Elevated white blood cell count, unspecified; R50.9 Fever, unspecified ==

== ENCOUNTER 2019-06-14 08:59 | Emergency (ER) | payer MEDICARE, OTHER ==
[~2019-06-14] VITALS: Ht 190.5 cm; Wt 204.1 kg
[2019-06-14] MEDS ORDERED: SODIUM CHLORIDE 0.9% 1,000 ML IV ONE (09:21)
[2019-06-14 09:36] VITALS: BP 130/87
[2019-06-14 10:02] LABS: Basophils # (auto) 0.1 uL; Basophils % (auto) 0.7 % (0.0-2.0); Eosinophils # (auto) 0.4 uL; Eosinophils % (auto) 4.2 % (0.0-7.0); Hematocrit 43.5 % (41.0-53.0); Hemoglobin 14.5 g/dL (13.5-17.5); Lymphocytes # (auto) 2.7 uL; Lymphocytes % (auto) 29.1 % (10.0-50.0); Mean Corpuscular Hemoglobin 28.9 pg (28.0-32.0); Mean Corpuscular Hgb Conc. 33.4 g/dL (32.0-36.0); Mean Corpuscular Volume 86.5 fL (80.0-100.0); Monocytes # (auto) 0.7 uL; Monocytes % (auto) 7.4 % (0.0-12.0); Neutrophils # (auto) 5.5 uL; Neutrophils % (auto) 58.6 % (37.0-80.0); Platelet Count (auto) 381 10^3/uL (140-450); Red Blood Cells 5.03 10^6/uL (4.5-5.90); Red Cell Distribution Width 15.2 % (11.8-14.3); White Blood Cell 9.4 10^3/uL (4.4-10.8)
[2019-06-14 10:20] LABS: Alanine Aminotransferase 29 U/L (16-61); Albumin 3.3 g/dL (3.4-5.0); Anion Gap 5 (5-15); Aspartate Aminotransferase 12 U/L (15-37); BUN/Creatinine Ratio 27.8; Blood Urea Nitrogen 20 mg/dL (7-18); Calcium 9.1 mg/dL (8.5-10.1); Carbon Dioxide 27 mmol/L (21-32); Chloride 106 mmol/L (98-107); GFR African American 163 mL/min; GFR Non-African American 134 mL/min; Glucose 103 mg/dL (74-106); Sodium 138 mmol/L (136-145)
[2019-06-14 10:24] LABS: Alkaline Phosphatase 93 U/L (45-117); Bilirubin, Total 0.4 mg/dL (0.2-1.0)
[2019-06-14 10:25] LABS: INR 1.02 (0.9-1.15); Partial Thromboplastin Time 29.8 sec (23.64-32.05)
== END 2019-06-14 10:53 | disposition home or self-care (01) ==
LOC: ER 09:05
DX: R00.2 Palpitations (principal); F41.9 Anxiety disorder, unspecified; E44.1 Mild protein-calorie malnutrition; Z68.43 Body mass index [BMI] 50.0-59.9, adult; Z86.718 Personal history of other venous thrombosis and embolism
CPT/HCPCS: 36415; 71046; 80053; 83735; 83880; 84443; 84484; 85025; 85379; 85610; 85730; 93005; 99284; J7030

== ENCOUNTER 2019-07-09 22:46 | Emergency (ER) | payer MEDICARE, OTHER ==
[~2019-07-09] VITALS: Ht 190.5 cm; Wt 199.6 kg
[2019-07-09 23:32] LABS: Basophils # (auto) 0.1 uL; Basophils % (auto) 0.9 % (0.0-2.0); Eosinophils # (auto) 0.6 uL; Eosinophils % (auto) 4.6 % (0.0-7.0); Hematocrit 44.9 % (41.0-53.0); Hemoglobin 14.7 g/dL (13.5-17.5); Lymphocytes # (auto) 3.6 uL; Lymphocytes % (auto) 26.9 % (10.0-50.0); Mean Corpuscular Hemoglobin 28.1 pg (28.0-32.0); Mean Corpuscular Hgb Conc. 32.7 g/dL (32.0-36.0); Monocytes # (auto) 0.8 uL; Monocytes % (auto) 5.8 % (0.0-12.0); Neutrophils # (auto) 8.2 uL; Neutrophils % (auto) 61.8 % (37.0-80.0); Platelet Count (auto) 433 10^3/uL (140-450); Red Blood Cells 5.22 10^6/uL (4.5-5.90); Red Cell Distribution Width 14.7 % (11.8-14.3); White Blood Cell 13.2 10^3/uL (4.4-10.8)
[2019-07-09 23:47] LABS: Alanine Aminotransferase 33 U/L (16-61); Albumin 3.6 g/dL (3.4-5.0); Anion Gap 10 (5-15); Aspartate Aminotransferase 20 U/L (15-37); BUN/Creatinine Ratio 20.8; Blood Urea Nitrogen 25 mg/dL (7-18); Calcium 9.7 mg/dL (8.5-10.1); Carbon Dioxide 23 mmol/L (21-32); Chloride 106 mmol/L (98-107); GFR African American 90 mL/min; GFR Non-African American 75 mL/min; Glucose 106 mg/dL (74-106); INR 1.02 (0.9-1.15); Magnesium 2.1 mg/dL (1.6-2.6); Partial Thromboplastin Time 28.1 sec (23.64-32.05); Potassium 4.2 mmol/L (3.5-5.1); Sodium 139 mmol/L (136-145)
[2019-07-09 23:53] LABS: Alkaline Phosphatase 97 U/L (45-117); Bilirubin, Total 0.2 mg/dL (0.2-1.0); Total Protein 8.2 g/dL (6.4-8.2)
[2019-07-10 00:20] VITALS: BP 118/74
== END 2019-07-10 00:26 | disposition home or self-care (01) ==
LOC: ER 22:54
DX: J06.9 Acute upper respiratory infection, unspecified (principal); M19.90 Unspecified osteoarthritis, unspecified site
CPT/HCPCS: 36415; 71046; 80053; 83735; 83880; 84443; 84484; 85025; 85610; 85730; 93005

== ENCOUNTER 2019-12-14 18:04 | Emergency (ER) | payer MEDICARE, OTHER ==
[~2019-12-14] VITALS: Ht 190.5 cm; Wt 199.6 kg
[2019-12-14 19:34] LABS: Basophils # (auto) 0.1 10 ^3/uL (0-0.2); Basophils % (auto) 0.9 % (0.0-2.0); Eosinophils # (auto) 0.5 10 ^3/uL (0-0.8); Eosinophils % (auto) 4.1 % (0.0-7.0); Hematocrit 44.5 % (41.0-53.0); Hemoglobin 14.4 g/dL (13.5-17.5); Lymphocytes # (auto) 2.6 10 ^3/uL (0.4-5.4); Lymphocytes % (auto) 21.3 % (10.0-50.0); Mean Corpuscular Hemoglobin 27.9 pg (28.0-32.0); Mean Corpuscular Hgb Conc. 32.3 g/dL (32.0-36.0); Mean Corpuscular Volume 86.4 fL (80.0-100.0); Monocytes # (auto) 0.7 10 ^3/uL (0-1.3); Monocytes % (auto) 5.8 % (0.0-12.0); Neutrophils # (auto) 8.4 10 ^3/uL (1.6-8.6); Neutrophils % (auto) 67.9 % (37.0-80.0); Platelet Count (auto) 414 10^3/uL (140-450); Red Blood Cells 5.16 10^6/uL (4.5-5.90); Red Cell Distribution Width 13.9 % (11.8-14.3); White Blood Cell 12.3 10^3/uL (4.4-10.8)
[2019-12-14] MEDS ORDERED: ONDANSETRON ODT 4 MG TAB PO ONE (19:45)
[2019-12-14] MEDS ORDERED: ACETAMINOPHEN 325 MG TAB PO ONE (19:45)
[2019-12-14 19:54] LABS: Alanine Aminotransferase 29 U/L (16-61); Albumin 3.2 g/dL (3.4-5.0); Anion Gap 5 (5-15); Aspartate Aminotransferase 14 U/L (15-37); BUN/Creatinine Ratio 14.7; Blood Urea Nitrogen 11 mg/dL (7-18); Calcium 9.2 mg/dL (8.5-10.1); Carbon Dioxide 26 mmol/L (21-32); Chloride 107 mmol/L (98-107); GFR African American 155 mL/min; GFR Non-African American 128 mL/min; Glucose 103 mg/dL (74-106); Potassium 3.8 mmol/L (3.5-5.1); Sodium 138 mmol/L (136-145)
[2019-12-14 19:59] LABS: Alkaline Phosphatase 95 U/L (45-117); Bilirubin, Total 0.4 mg/dL (0.2-1.0); Total Protein 7.7 g/dL (6.4-8.2)
[2019-12-14 21:02] VITALS: BP 152/98
== END 2019-12-14 20:57 | disposition home or self-care (01) ==
LOC: ER 18:04
DX: K52.9 Noninfective gastroenteritis and colitis, unspecified (principal); R51 Headache; F41.9 Anxiety disorder, unspecified
CPT/HCPCS: 36415; 71046; 80053; 84484; 85025; 93005; 99285; Q0162

== ENCOUNTER 2020-02-08 20:14 | Emergency (ER) | payer MEDICARE, OTHER ==
[~2020-02-08] VITALS: Ht 190.5 cm; Wt 226.8 kg
[2020-02-08] MEDS ORDERED: methylPREDNISolone SOD SUCC 125 MG/2 ML VL IV ONE (21:00)
[2020-02-08] MEDS ORDERED: SODIUM CHLORIDE 0.9% 500 ML IV ONE (21:00)
[2020-02-08 21:23] LABS: Basophils # (auto) 0 10 ^3/uL (0-0.2); Basophils % (auto) 0.5 % (0.0-2.0); Eosinophils # (auto) 0.3 10 ^3/uL (0-0.8); Eosinophils % (auto) 3.5 % (0.0-7.0); Hematocrit 51.5 % (41.0-53.0); Hemoglobin 16.3 g/dL (13.5-17.5); Lymphocytes # (auto) 3.1 10 ^3/uL (0.4-5.4); Lymphocytes % (auto) 37.4 % (10.0-50.0); Mean Corpuscular Hemoglobin 27.3 pg (28.0-32.0); Mean Corpuscular Hgb Conc. 31.7 g/dL (32.0-36.0); Mean Corpuscular Volume 86.1 fL (80.0-100.0); Monocytes # (auto) 0.6 10 ^3/uL (0-1.3); Monocytes % (auto) 7.8 % (0.0-12.0); Neutrophils # (auto) 4.2 10 ^3/uL (1.6-8.6); Neutrophils % (auto) 50.8 % (37.0-80.0); Nucleated Red Blood Cells % 0.1 %; Platelet Count (auto) 396 10^3/uL (140-450); Red Blood Cells 5.98 10^6/uL (4.5-5.90); Red Cell Distribution Width 14.5 % (11.8-14.3); White Blood Cell 8.3 10^3/uL (4.4-10.8)
[2020-02-08 21:38] LABS: Partial Thromboplastin Time 27.2 sec (23.0-31.2)
[2020-02-08 21:43] LABS: Albumin 3.9 g/dL (3.4-5.0); Calcium 9.5 mg/dL (8.5-10.1); Magnesium 2.3 mg/dL (1.6-2.6); Potassium 3.8 mmol/L (3.5-5.1)
[2020-02-08 21:47] LABS: BUN/Creatinine Ratio 12.5; Bilirubin, Total 0.5 mg/dL (0.2-1.0); Total Protein 8.8 g/dL (6.4-8.2)
[2020-02-08 22:49] LABS: Lactic Acid w/Reflex 2.1 mmol/L (0.4-2.0)
[2020-02-09] MEDS ORDERED: VANCOMYCIN 1GM/250ML 250 ML IV ONE (01:30)
[2020-02-09] MEDS ORDERED: SODIUM CHLORIDE 0.9% 1,000 ML IV ONE (01:30)
[2020-02-09] MEDS ORDERED: PIPERACILLIN-TAZOB 3.375GM 100 ML IV ONE (01:30)
[2020-02-09] MEDS ORDERED: cefTRIAXone 1GM/50ML D5W 50 ML IV ONE (03:00)
[2020-02-09 04:00] VITALS: BP 122/65
== END 2020-02-09 04:58 | disposition home or self-care (01) ==
LOC: ER 20:14
DX: U07.1 COVID-19 (principal); J01.00 Acute maxillary sinusitis, unspecified
CPT/HCPCS: 36415; 71045; 80053; 83605; 83735; 83880; 84484; 85025; 85379; 85610; 85730; 87040; 87426; 93005; 96365; 96366; 96367; 96375; 99285; J0696; J2543; J2930; J3370

== ENCOUNTER → 2020-05-21 | Outpatient (CLI) | payer MEDICARE, OTHER, MEDICAID ==
[2020-05-21 15:19] LABS: Eosinophils # (auto) 0.6 10 ^3/uL (0-0.8); Hematocrit 47.1 % (41.0-53.0); Hemoglobin 15.3 g/dL (13.5-17.5); Lymphocytes # (auto) 2.5 10 ^3/uL (0.4-5.4); Monocytes # (auto) 0.6 10 ^3/uL (0-1.3); Neutrophils # (auto) 8.1 10 ^3/uL (1.6-8.6); Red Cell Distribution Width 14.8 % (11.8-14.3)
[2020-05-21 15:20] LABS: Basophils # (auto) 0.1 10 ^3/uL (0-0.2); Basophils % (auto) 0.5 % (0.0-2.0); Eosinophils % (auto) 4.6 % (0.0-7.0); Lymphocytes % (auto) 21.4 % (10.0-50.0); Mean Corpuscular Hemoglobin 28.1 pg (28.0-32.0); Mean Corpuscular Hgb Conc. 32.5 g/dL (32.0-36.0); Mean Corpuscular Volume 86.4 fL (80.0-100.0); Monocytes % (auto) 5.4 % (0.0-12.0); Neutrophils % (auto) 68.1 % (37.0-80.0); Platelet Count (auto) 470 10^3/uL (140-450); Red Blood Cells 5.45 10^6/uL (4.5-5.90); White Blood Cell 11.9 10^3/uL (4.4-10.8)
[2020-05-21 15:48] LABS: Albumin 3.7 g/dL (3.4-5.0); BUN/Creatinine Ratio 17.1; Calcium 9.8 mg/dL (8.5-10.1); Potassium 3.9 mmol/L (3.5-5.1)
[2020-05-21 15:53] LABS: Bilirubin, Total 0.4 mg/dL (0.2-1.0); Total Protein 8.5 g/dL (6.4-8.2)
== END | disposition home or self-care (01) ==
LOC: LAB 15:02
PROVIDERS: ATTEND Physician Assistant
DX: I10 Essential (primary) hypertension (principal); E55.9 Vitamin D deficiency, unspecified; D50.0 Iron deficiency anemia secondary to blood loss (chronic); E66.9 Obesity, unspecified
CPT/HCPCS: 36415; 80053; 80061; 82306; 85025

== ENCOUNTER 2020-08-07 03:27 | Emergency (ER) | payer MEDICARE, OTHER ==
[~2020-08-07] VITALS: Ht 190.5 cm; Wt 204.1 kg
[2020-08-07 03:28] VITALS: BP 164/101
== END 2020-08-07 09:54 | disposition left against medical advice (07) ==
LOC: ER 03:28
DX: R11.0 Nausea (principal); R51.9 Headache, unspecified; R19.7 Diarrhea, unspecified; Z53.21 Procedure and treatment not carried out due to patient leaving prior to being seen by health care provider

== ENCOUNTER → 2021-08-29 | Outpatient (CLI) | payer MEDICARE, OTHER ==
[2021-08-29 10:22] LABS: Urine Bacteria NONE SEEN /hpf (None Seen); Urine Blood Negative /uL (Negative); Urine Mucus FEW (None Seen); Urine Specific Gravity 1.022 (1.001-1.035); Urine WBC 1 /hpf (0 - 3)
[2021-08-29 10:46] LABS: Basophils # (auto) 0.1 10 ^3/uL (0-0.2); Basophils % (auto) 0.8 % (0.0-2.0); Eosinophils # (auto) 0.5 10 ^3/uL (0-0.8); Eosinophils % (auto) 4.1 % (0.0-7.0); Hematocrit 47.3 % (41.0-53.0); Hemoglobin 15.1 g/dL (13.5-17.5); Lymphocytes # (auto) 2.7 10 ^3/uL (0.4-5.4); Lymphocytes % (auto) 21.9 % (10.0-50.0); Mean Corpuscular Hemoglobin 27.5 pg (28.0-32.0); Mean Corpuscular Hgb Conc. 31.8 g/dL (32.0-36.0); Mean Corpuscular Volume 86.4 fL (80.0-100.0); Monocytes # (auto) 0.6 10 ^3/uL (0-1.3); Neutrophils # (auto) 8.5 10 ^3/uL (1.6-8.6); Neutrophils % (auto) 68.2 % (37.0-80.0); Nucleated Red Blood Cells % 0.1 %; Red Blood Cells 5.48 10^6/uL (4.5-5.90); Red Cell Distribution Width 14.6 % (11.8-14.3); White Blood Cell 12.5 10^3/uL (4.4-10.8)
[2021-08-29 11:35] LABS: Albumin 3.5 g/dL (3.4-5.0); BUN/Creatinine Ratio 16.9; Bilirubin, Total 0.4 mg/dL (0.2-1.0); Calcium 9.8 mg/dL (8.5-10.1); Total Protein 8.3 g/dL (6.4-8.2)
== END | disposition home or self-care (01) ==
LOC: LAB 09:04
PROVIDERS: ATTEND Nurse Practitioner Family
DX: D50.0 Iron deficiency anemia secondary to blood loss (chronic) (principal); I10 Essential (primary) hypertension; E55.9 Vitamin D deficiency, unspecified; R73.9 Hyperglycemia, unspecified
CPT/HCPCS: 36415; 80053; 80061; 81001; 82043; 82306; 83036; 85025

== ENCOUNTER → 2022-09-16 | Outpatient (CLI) | payer MEDICARE, OTHER ==
[2022-09-16 14:38] LABS: Basophils # (auto) 0.1 10 ^3/uL (0-0.2); Basophils % (auto) 0.7 % (0.0-2.0); Eosinophils # (auto) 0.4 10 ^3/uL (0-0.8); Eosinophils % (auto) 4.5 % (0.0-7.0); Hematocrit 43.6 % (41.0-53.0); Hemoglobin 14.4 g/dL (13.5-17.5); Lymphocytes # (auto) 2.8 10 ^3/uL (0.4-5.4); Lymphocytes % (auto) 28.6 % (10.0-50.0); Mean Corpuscular Hemoglobin 28.8 pg (28.0-32.0); Mean Corpuscular Volume 87.2 fL (80.0-100.0); Monocytes # (auto) 0.7 10 ^3/uL (0-1.3); Monocytes % (auto) 6.6 % (0.0-12.0); Neutrophils # (auto) 5.9 10 ^3/uL (1.6-8.6); Neutrophils % (auto) 59.6 % (37.0-80.0); Red Cell Distribution Width 14.6 % (11.8-14.3); White Blood Cell 9.9 10^3/uL (4.4-10.8)
[2022-09-16 16:59] LABS: Potassium 4.1 mmol/L (3.5-5.1)
[2022-09-16 17:13] LABS: Albumin 3.2 g/dL (3.4-5.0); BUN/Creatinine Ratio 20.6 (10.0-20.0); Bilirubin, Total 0.4 mg/dL (0.2-1.0); Calcium 9.8 mg/dL (8.5-10.1); Total Protein 7.8 g/dL (6.4-8.2)
== END | disposition home or self-care (01) ==
LOC: LAB 14:14
PROVIDERS: ATTEND Nurse Practitioner Family
DX: I10 Essential (primary) hypertension (principal); R73.03 Prediabetes; E55.9 Vitamin D deficiency, unspecified
CPT/HCPCS: 36415; 80053; 80061; 82043; 82306; 83036; 84439; 84443; 85025

== ENCOUNTER → 2023-09-06 | Outpatient (CLI) | payer MEDICARE, OTHER ==
[2023-09-06 12:32] LABS: Basophils # (auto) 0.1 10 ^3/uL (0-0.2); Basophils % (auto) 0.5 % (0.0-2.0); Eosinophils # (auto) 0.5 10 ^3/uL (0-0.8); Eosinophils % (auto) 3.5 % (0.0-7.0); Hematocrit 44.6 % (41.0-53.0); Hemoglobin 14.6 g/dL (13.5-17.5); Lymphocytes # (auto) 2.7 10 ^3/uL (0.4-5.4); Lymphocytes % (auto) 20.8 % (10.0-50.0); Mean Corpuscular Hemoglobin 27.8 pg (28.0-32.0); Mean Corpuscular Hgb Conc. 32.7 g/dL (32.0-36.0); Monocytes # (auto) 0.9 10 ^3/uL (0-1.3); Monocytes % (auto) 6.6 % (0.0-12.0); Neutrophils % (auto) 68.6 % (37.0-80.0); Red Blood Cells 5.25 10^6/uL (4.5-5.90); Red Cell Distribution Width 14.5 % (11.8-14.3); White Blood Cell 13.1 10^3/uL (4.4-10.8)
[2023-09-06 13:20] LABS: Alanine Aminotransferase 28 U/L (7-40); Alkaline Phosphatase 84 U/L (46-116); Triglycerides 136 mg/dL (< 150)
[2023-09-06 13:21] LABS: Albumin 4.4 g/dL (3.2-4.8); Anion Gap 8 (5-15); Aspartate Aminotransferase 16 U/L (13-40); Bilirubin, Total 0.4 mg/dL (0.2-1.0); Blood Urea Nitrogen 11 mg/dL (9-23); Calcium 10.7 mg/dL (8.5-10.1); Carbon Dioxide 24 mmol/L (20-30); Chloride 104 mmol/L (98-107); Cholesterol 165 mg/dL (< 200); Glucose 95 mg/dL (74-106); HDL Cholesterol 51 mg/dL (40-59); LDL Cholesterol 104 mg/dL (< 100); Potassium 4.2 mmol/L (3.5-5.1); Sodium 136 mmol/L (136-145); Total Protein 7.4 g/dL (5.7-8.2)
== END | disposition home or self-care (01) ==
LOC: LAB 12:08
PROVIDERS: ATTEND Nurse Practitioner Family
DX: I10 Essential (primary) hypertension (principal); R73.03 Prediabetes; E55.9 Vitamin D deficiency, unspecified; E78.5 Hyperlipidemia, unspecified
CPT/HCPCS: 36415; 80053; 80061; 82043; 82306; 83036; 84439; 84443; 85025